=== PATIENT | female | born 1960 | race Caucasian/White ===

== ENCOUNTER 2021-10-28 10:27 | Outpatient (CLI) | payer OTHER, SELFPAY ==
--- NOTE | ~2021-10-28 | MM_ITS ---
EXAMINATION: MM screening charis BI w juaquin HISTORY: Screening mammogram TECHNIQUE: Craniocaudal and mediolateral oblique 3-D tomosynthesis images were obtained and synthetic 2-D images were generated. CAD analysis was submitted and interpreted. COMPARISON: 05/2019, 09/08/2017 bilateral screening mammogram examinations BREAST PARENCHYMAL COMPOSITION: There are scattered areas of fibroglandular density. FINDINGS: There is no evidence of suspicious mass, calcification, or architectural distortion to sugg est malignancy in either breast. There has been no suspicious interval change. IMPRESSION: 1. No mammographic evidence of malignancy. 2. Recommend routine screening mammography in one year. BI-RADS Category 1: Negative Reviewed, dictated and finalized at location A.
== END 2021-10-28 10:28 | disposition home or self-care (01) ==
LOC: ANHIMG 10:29
PROVIDERS: PCP Emergency Medicine; Visit Provider Obstetrics & Gynecology Gynecology
DX: Z12.31 Encounter for screening mammogram for malignant neoplasm of breast (principal)
CPT/HCPCS: 77063; 77067

== ENCOUNTER 2022-10-08 08:15 | Emergency (ER) | payer OTHER, SELFPAY ==
[2022-10-08] VITALS (7 sets, daily range): BP systolic 102–133; BP diastolic 65–86; PULSE 75–99; RESP 15–16; O2SAT 99–100
--- NOTE | ~2022-10-08 | XR_ITS ---
Clinical Indication: Atrial fibrillation, palpitations PA and lateral views of the chest: Comparison: None Findings: The lungs are clear, without evidence of focal consolidation or pleural effusion. Cardiome diastinal silhouette is within normal limits. Bones and soft tissues are unremarkable. Impression: Normal chest. Reviewed, dictated and finalized at [facility]. SPLANT NURSE Impression: Normal chest.
--- NOTE | ~2022-10-08 | XR_ITS ---
EXAMINATION: XR hip LT 2V w AP pelvis DATE: 10/08/2022 08:52 INDICATION: Left hip pain. TECHNIQUE: An anteroposterior view of the pelvis and 2 views of left hip were obtained. COMPARISON: None. FINDINGS: Bone alignment is normal. No fracture. There is severe lumbar spondylosis. There is mild os teoarthritis of the hips characterized by tiny osteophytes without joint space narrowing. IMPRESSION: 1. Mild osteoarthritis of the hips. Reviewed, dictated and finalized at location A. 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
--- NOTE | 2022-10-08 08:30 | ED.GENADULT ---
HPI - General Adult General Chief complaint: Arrhythmia/Palpitations Stated complaint: A-FIB, palpitations resolved Time Seen by Provider: 10/08/22 08:18 History of Present Illness HPI narrative: 62-year-old female with history of paroxysmal atrial fibrillation presented to the emergency department for evaluation of A-fib. Patient states that she had episode of A-fib after surgery approximately 8 to 9 years ago. Patient states that she stopped taking her metoprolol a few years ago but states over the last 3 to 4 years she has been having intermittent episodes of atrial fibrillation. Patient no longer takes medication for this. Patient discussed this with her primary care physician and she was advised to present to the emergency department if she had any additional episodes of A-fib. Patient reports that last night when she was going to bed she says that she was A-fib but did not check to see if she was. Patient woke up this morning and did put on her watch and noted she was in A-fib. Patient denied any chest pain with this. As patient drove to the emergency department she felt the atrial fibrillation resolved. Patient states she did have some chest pain back pain at that time but that has also since resolved. Patient thought that the chest pain/back pain was most likely muscular. Denies any prior history of [place]. Patient reports that she is physically active and does not have chest pain with activity. Patient states she has never had a stress test. Patient also reported that she has been having left hip pain for the last 4 weeks and was going to follow-up with her primary care physician for this. Related Data Home Medications Medication Instructions Recorded Confirmed multivitamin 1 tablet PO DAILY 06/16/22 06/16/22 Allergies Allergy/AdvReac Type Severity Reaction Status Date / Time cefadroxil Allergy Unknown Unknown Verified 10/08/22 08:31 Review of Systems Review of Systems: CONSTITUTIONAL: Denies fever, chills, or sweats. EYES: Denies visual changes, redness, or discharge. ENT: Denies rhinorrhea, congestion, sore throat, or otalgia. CARDIOVASCULAR: See HPI RESPIRATORY: Denies cough or dyspnea. GASTROINTESTINAL: Denies abdominal pain, nausea, vomiting, or diarrhea. GENITOURINARY: Denies dysuria or hematuria. SKIN: Denies rash or itching. MUSCULOSKELETAL: See HPI NEUROLOGIC: Denies headache, numbness, or weakness. [facility] Past Medical History Medical History (Updated 10/08/22 @ 14:23 by Tomas Valderrama MD) Afib Osteoarthritis Family History Family History Father Hypertension Family history of diabetes mellitus in first degree relative Diabetes mellitus, Onset Age: 79 Family history of glaucoma, Onset Age: 79 Family history of cardiovascular disease, Onset Age: 79 Family history of kidney disease, Onset Age: 79 Sibling Asthma Family history of diabetes mellitus in first degree relative Family history of glaucoma Family history of malignant neoplasm of kidney Mother Family history of osteoarthritis Other Family history of arthritis Social History Social History Smoking status: Never smoker Second hand tobacco smoke exposure: No Alcohol intake: never Substance use: never Substance use type: does not use Living arrangements: with family Gender identity (if verbalized by the patient): Female Spiritual care concerns: No Agree to blood products: Yes Exam Narrative: APPEARANCE: Well appearing, no pain, no distress, well-nourished. HEAD: normocephalic, atraumatic. EYES: PERRLA/EOMI, conjunctivae clear. NOSE: Normal no drainage NECK: Supple. No adenopathy, no masses. RESPIRATORY: Airway patent, respirations nonlabored. Clear to auscultation bilaterally, no rales, rhonchi, wheezing. CARDIOVASCULAR: Regular rate and rhythm without murmurs rubs or gallops.
--- NOTE | 2022-10-08 08:37 | ECG_ITS ---
Measurements Intervals [place] Rate: 97 P: 72 NM: 143 QRS: 5 QRSD: 75 T: 53 QT: 328 QTc: 417 Interpretive Statements SINUS RHYTHM BORDERLINE ST-T WAVE ABNORMALITY- DIFFUSE LEADS BASELINE ARTIFACT- I, II, AVR, AVL, AVF, V1-V2 BORDERLINE ECG NO PREVIOUS ECG AVAILABLE FOR COMPARISON Electronically Signed On 10-08-2022 9:00:19 WIND DEVELOPMENT DIRECTOR by Ramiro Crawford D.O.
[2022-10-08 08:43] LABS: Basophils Percent Auto 0.9 % (0.2-1.2); Eosinophils Absolute Auto 0.1 K/mm3 (0-0.3); Eosinophils Percent Auto 1.9 % (0-4.4); Hematocrit 39.8 % (37.0-47.0); Hemoglobin 13.1 g/dL (12.0-15.0); Immature Granulocyte Absolute 0.01 K/mm3 (0.00-0.031); Immature Granulocyte Percent A 0.2 % (0-0.5); Lymphocytes Absolute Auto 1.25 K/mm3 (0.9-3.2); Lymphocytes Percent Auto 29.3 % (18.3-44.2); Mean Corpuscular HGB Conc 32.9 g/dl (32-36); Mean Corpuscular Hemoglobin 32.3 pg (26-34); Mean Platelet Volume 11.5 fl (7.4-10.4); Monocytes Absolute Auto 0.4 K/mm3 (0.1-0.6); Monocytes Percent Auto 8.7 % (2.6-8.5); Neutrophils Absolute Auto 2.5 K/mm3 (1.3-6.7); Platelet Count Result 227 k/mm3 (150-375); Red Blood Count 4.06 M/mm3 (4.2-5.4); Red Cell Distribution Width 12.3 % (11.5-14.5); White Blood Count 4.3 K/mm3 (4.5-10.0)
[2022-10-08 08:50] LABS: INR 1.1; Prothrombin Time 13.7 Seconds (11.1-14.7)
[2022-10-08 08:51] LABS: Partial Thromboplastin Time 26.8 SECONDS (22.3-36.8)
[2022-10-08 09:09] LABS: Alanine Aminotransferase 19 U/L (6-35); Albumin Level 4.8 g/dL (3.5-5.1); Alkaline Phosphatase 46 U/L (38-126); Anion Gap 5 mmol/L (8-16); Aspartate Amino Transferase 24 U/L (14-36); Bilirubin,Total 0.6 mg/dL (0.2-1.3); Blood Urea Nitrogen 17 mg/dL (7-17); Calcium 9.2 mg/dL (8.4-10.2); Carbon Dioxide 28 mmol/L (22-30); Chloride 102 mmol/L (98-107); Estimated Glomerular Filt Rate > 60; Glucose 82 mg/dL (65-110); Potassium 4.1 mmol/L (3.4-5.0); Sodium 135 mmol/L (137-145)
[2022-10-08 09:21] LABS: Troponin I < 0.012 ng/mL (0.000-0.034)
[2022-10-08 09:33] LABS: Appearance Urine Clear (Clear); Bilirubin Urine Negative (Negative); Blood Urine Negative (Negative); Color Urine Yellow (Yellow); Glucose Urine UA Negative (Negative); Ketones Urine Negative (Negative); Leukocyte Esterase Ur Negative LEU/UL (Negative); Nitrate Urine Negative (Negative); Protein Urine Negative (Negative); Specific Grav Ur 1.004 (1.001-1.035); Urobilinogen Urine 0.2 mg/dL (<2.0)
[2022-10-08 10:04] LABS: Add Urine Microscopic? NO
[2022-10-08 11:57] LABS: Troponin I < 0.012 ng/mL (0.000-0.034)
[2022-10-08] MEDS: METOPROLOL SUCCINATE EXT REL 25 MG TABCR PO (13:36)
== END 2022-10-08 14:38 | disposition home or self-care (01) ==
PROVIDERS: Emergency Provider Emergency Medicine; PCP Emergency Medicine
DX: I48.0 Paroxysmal atrial fibrillation (principal)
CPT/HCPCS: 36415; 71046; 73502; 80053; 81003; 83735; 84443; 84484; 85025; 85610; 85730; 93005; 99284; A9270

== ENCOUNTER 2022-12-18 07:35 | Outpatient (CLI) | payer OTHER, SELFPAY ==
--- NOTE | 2022-12-18 07:54 | ECHO_ITS ---
Patient Info Name: Lilo Obregon Age: 62 years : 1960 Gender: Female Ht: 68 in Wt: 178 lbs BSA: 1.98 m2 HR: 78 bpm BP: 123 / 77 mmHg Heart Rhythm: Sinus Rhythm Technical Quality: Good Exam Date: 12/18/2022 8:09 AM Exam Location: [facility] Pulmonary Patient Status: Outpatient Admit Date: 12/18/2022 Staff Ordering Physician: Ramiro Crawford DO Attending Provider: Ramiro Crawford DO Referring Physician: Ty DRISCOLL; Exam Type: CA echo doppler color flow Study Info Indications R07.9 - Chest pain, unspecified Complete two-dimensional, color flow and Doppler transthoracic echocardiogram is performed. Summary 1. Complete two-dimensional, color flow and Doppler transthoracic echocardiogram is performed. 2. Left ventricular chamber dimension is normal. 3. Left ventricular systolic function is normal, estimated at 60-65%. 4. The left ventricular diastolic function is grade I diastolic dysfunction. 5. E/e' 6 is not elevated. 6. There is mild aortic valve regurgitation. 7. There is mild mitral valve regurgitation. 8. There is mild tricuspid valve regurgitation. 9. No pulmonary hypertension, estimated pulmonary arterial systolic pressure is 31 mmHg. Left Ventricle E/e' 6 is not elevated. Left ventricular chamber dimension is normal. Left ventricular systolic function is normal, estimated at 60-65%. The left ventricular diastolic function is grade I diastolic dysfunction. Right Ventricle Right ventricular systolic function is normal and with normal TAPSE 2.3 cm. Right ventricular chamber dimension is normal. Left Atria Left atrial chamber dimension is normal. Right Atria Right atrial chamber dimension is normal. Aortic Valve The aortic valve is trileaflet. There is no aortic valve stenosis. There is mild aortic valve regurgitation. Pulmonic Valve There is no pulmonic regurgitation. Mitral Valve There is no mitral valve stenosis. There is mild mitral valve regurgitation. Tricuspid Valve There is mild tricuspid valve regurgitation. No pulmonary hypertension, estimated pulmonary arterial systolic pressure is 31 mmHg. Pericardium/Pleural There is no pericardial effusion. Inferior Vena Cava Normal inferior vena cava with >50% collapse upon inspiration consistent with normal right atrial pressure, 5 mmHg. Aorta The aortic root size at the sinus of Valsalva is normal. Left Ventricular Outflow Tract Name Value Normal LVOT 2D LVOT Diameter 1.9 cm LVOT Doppler LVOT Peak Gradient 5 mmHg LVOT Mean Gradient 2 mmHg LVOT VTI 27 cm LVOT VTI/AV VTI Ratio 0.7 LVOT Stroke Volume 79 ml LVOT CO 4.3 l/min LVOT CI 2.1 l/min/m2 Pulmonic Valve Name Value Normal RVOT Doppler RVOT Peak Gradient 1 mmHg PV Dopp
--- NOTE | 2022-12-18 07:54 | EST_ITS ---
Patient Info Name: Lilo Obregon Age: 62 years : 1960 Gender: Female Ht: 68 in Wt: 178 lbs BSA: 1.98 m2 Exam Date: 12/18/2022 9:07 AM Exam Location: [facility] Stress Patient Status: Outpatient Admit Date: 12/18/2022 Staff Ordering Physician: Ramiro Crawford DO Attending Provider: Ramiro Crawford DO Exercise Technologist: Fernanda Pham RDCS Exercise Physician: Ramiro Crawford DO Exam Type: CA stress test treadmill Study Info A treadmill exercise stress test was performed. Summary 1. 1. Negative Franky exercise stress test for ischemic ST changes by ECG criteria. 2. 2. Reduced functional capacity, achieving 7 METs of workload. 3. 3. Appropriate HR response to exercise. 4. 4. Appropriate HR recovery at 1 minute post exercise. 5. 5. No imaging with stress testing. 6. 6. Patient informed of the above results. Protocol: Franky Stress ECG Details Stage: REST Duration (min): 1 min : 1 sec Speed (mph): 0.0 Grade (%): 0 HR (bpm): 73 SBP (mmHg): 118 DBP (mmHg): 69 METS: --- Stage: REST Duration (min): 4 min : 34 sec Speed (mph): 0.0 Grade (%): 0 HR (bpm): 84 SBP (mmHg): 118 DBP (mmHg): 69 METS: --- Stage: STAGE 1 Duration (min): 1 min : 0 sec Speed (mph): 1.7 Grade (%): 10 HR (bpm): 103 SBP (mmHg): 118 DBP (mmHg): 69 METS: --- Stage: STAGE 1 Duration (min): 2 min : 0 sec Speed (mph): 1.7 Grade (%): 10 HR (bpm): 122 SBP (mmHg): 118 DBP (mmHg): 69 METS: --- Stage: STAGE 1 Duration (min): 3 min : 0 sec Speed (mph): 1.7 Grade (%): 10 HR (bpm): 128 SBP (mmHg): 154 DBP (mmHg): 76 METS: --- Stage: STAGE 2 Duration (min): 1 min : 0 sec Speed (mph): 2.5 Grade (%): 12 HR (bpm): 134 SBP (mmHg): 154 DBP (mmHg): 76 METS: --- Stage: STAGE 2 Duration (min): 2 min : 0 sec Speed (mph): 2.5 Grade (%): 12 HR (bpm): 141 SBP (mmHg): 160 DBP (mmHg): 73 METS: --- Stage: STAGE 2 Duration (min): 2 min : 4 sec Speed (mph): 2.5 Grade (%): 12 HR (bpm): 142 SBP (mmHg): 160 DBP (mmHg): 73 METS: --- Stage: RECOVERY Duration (min): 0 min : 55 sec Speed (mph): 0.0 Grade (%): 0 HR (bpm): 126 SBP (mmHg): 160 DBP (mmHg): 73 METS: --- Stage: RECOVERY Duration (min): 1 min : 55 sec Speed (mph): 0.0 Grade (%): 0 HR (bpm): 102 SBP (mmHg): 168 DBP (mmHg): 74 METS: --- Stage: RECOVERY Duration (min): 2 min : 55 sec Speed (mph): 0.0 Grade (%): 0 HR (bpm): 95 SBP (mmHg): 171 DBP (mmHg): 71 METS: --- Stage: RECOVERY Duration (min): 3 min : 55 sec Speed (mph): 0.0 Grade (%): 0 HR (bpm): 91 SBP (mmHg): 171 DBP (mmHg): 71 METS: --- Stage: RECOVERY Duration (min): 4 min : 54 sec Speed (mph): 0.0 Grade (%): 0 HR (bpm): 88 SBP (mmHg): 143 DBP (mmHg): 68 METS: --- Rest HR: 84 bpm Peak HR: 143 bpm Rest Sys BP: 118 mmHg Peak Sys BP: 171 mmHg Max Pred HR:
== END 2022-12-18 07:36 | disposition home or self-care (01) ==
LOC: ANHCARD 07:36
PROVIDERS: PCP Emergency Medicine; Visit Provider Internal Medicine Cardiovascular Disease
DX: I48.0 Paroxysmal atrial fibrillation (principal); R07.9 Chest pain, unspecified; I34.0 Nonrheumatic mitral (valve) insufficiency; I35.1 Nonrheumatic aortic (valve) insufficiency; I36.1 Nonrheumatic tricuspid (valve) insufficiency
CPT/HCPCS: 93017; 93306

== ENCOUNTER 2023-01-13 01:44 | Day surgery (SDC) | payer OTHER, SELFPAY ==
[2023-01-06 13:48] VITALS: BMI 27.4
--- NOTE | 2023-01-13 08:36 | WPDANESEPPF ---
Anes - Initial Pre Proc Eval Procedure: Operation Date: 01/13/23 10:30 Proposed Procedures p Screening Colonoscopy - Errol Weaver MD Date/Time: 01/13/23 08:36 Surgeon: Errol Weaver MD Pre Op Diagnosis: neoplasm screening Patient Data Age: 62 Gender: F Height: 1.73 m Weight: 81.8 kg Allergies Allergy/AdvReac Type Severity Reaction Status Date / Time cefadroxil Allergy Unknown Rash Verified 01/13/23 09:00 Home Medications Medication Instructions Recorded Confirmed Type multivitamin 1 tablet PO DAILY 06/16/22 01/06/23 History metoprolol succinate 25 mg 25 mg PO DAILY 30 days #90 tabs 11/05/22 01/06/23 Rx tablet,extended release 24 hr peg 3350-electrolytes 236 240 ml PO Q10M #4,000 mL 12/10/22 01/06/23 Rx gram-22.74 gram-6.74 gram-5.86 gram solution (Golytely) flecainide 100 mg tablet 100 mg PO Q12H PRN afib 01/06/23 01/06/23 History fluticasone propionate 50 1 spray intranasal DAILY 01/06/23 01/06/23 History mcg/actuation nasal spray,suspension Other studies: Admit Date: ? ? 12/18/2022 Staff Ordering Physician: ? ? Ramiro Crawford. DO Attending Provider: ? ? Ramiro Crwaford. DO Referring Physician: ? ? Ty DRISCOLL; Exam Type: ? ? CA echo doppler color flow Study Info Indications ? ? R07.9 - Chest pain,? unspecified Complete two-dimensional, color flow and Doppler transthoracic echocardiogram is performed. Account #: ? ? [id number] Summary ? 1. Complete two-dimensional, color flow and Doppler transthoracic echocardiogram is performed. ? 2. Left ventricular chamber dimension is normal. ? 3. Left ventricular systolic function is normal, estimated at 60-65%. ? 4. The left ventricular diastolic function is grade I diastolic dysfunction. ? 5. E/e' 6 is not elevated. ? 6. There is mild aortic valve regurgitation. ? 7. There is mild mitral valve regurgitation. ? 8. There is mild tricuspid valve regurgitation. ? 9. No pulmonary hypertension, estimated pulmonary arterial systolic pressure is 31 mmHg. Patient hx anesthesia problems: none Family hx anesthesia problems: none Results Review: All pre-operative results and documents have been reviewed as part of the pre-operative evaluation. [facility] Past Medical History Medical History (Updated 01/13/23 @ 09:09 by Errol Weaver MD) Afib Colon polyp Osteoarthritis Family History Family History Father Hypertension Family history of diabetes mellitus in first degree relative Diabetes mellitus, Onset Age: 79 Family history of glaucoma, Onset Age: 79 Family history of cardiovascular disease, Onset Age: 79 Family history of kidney disease, Onset Age: 79 Sibling Asthma Family history of diabetes mellitus in first degree relative Family history of glaucoma Family history of malignant neoplasm of kidney Mother Family history of osteoarthritis Other Family history of arthritis Social History Social History Smoking status: Never smoker Second hand tobacco smoke exposure: No Alcohol intake: never Substance use: never Substance use type: does not use Living arrangements: with family Gender identity (if verbalized by the patient): Female Spiritual care concerns: No Agree to blood products: Yes Anes - Eval Final PreProcedure Day of Procedure 01/13/23 08:36 Patient weight: overweight Heart: regular rate and rhythm Lungs: clear to auscultation and normal air movement Airway: Mallampati scale class II Neurological: alert and oriented Last oral intake: >/= 8 hours ASA classification: II Emergent: no Anesthetic plan: proceed Anesthesia type and monitoring: general GIVS Results Review: All pre-operative results and documents have been reviewed as part of the pre-operative evaluation. Informed Consent: The patient's anesthe
[2023-01-13 09:02] VITALS: BP 119/69; PULSE 71; RESP 20; TEMP 36.6; O2SAT 100
--- NOTE | 2023-01-13 09:06 | PM.HPGS ---
History of Present Illness History of Present Illness Consent: Risks, benefits, and alternatives have been discussed and questions answered. Patient agrees to proceed with procedure. Chief complaint: neoplasm screening Narrative: Lilo Obregon is a 62 year old female with colon polyp 5 years ago Review of Systems Constitutional: Constitutional: Denies headache(s) and Denies weakness Eyes: Eyes: Denies blurry vision ENT: Reports Normal hearing present, Denies headache(s) and Denies neck pain Cardiovascular: Cardiovascular: Denies chest pain and Denies dyspnea Respiratory: Respiratory: Denies dyspnea Gastrointestinal: Gastrointestinal: Reports no additional gastrointestinal complaints Genitourinary: Genitourinary: Denies dysuria Musculoskeletal: Musculoskeletal: Denies neck pain Integumentary/Breasts: Skin/Breast: Denies dry skin Neurologic: Reports Normal hearing present, Denies headache(s) and Denies weakness Psychiatric: Psychiatric: Denies anxiety Endocrine: Endocrine: Denies change in body appearance Hematologic/Lymphatic: Hematologic/Lymphatic: Denies easy bleeding Allergic/Immunologic: Allergic/Immunologic: Denies urticaria PMF Past Medical History Medical History (Updated 01/13/23 @ 09:09 by Errol Weaver MD) Afib Colon polyp Osteoarthritis Family History Family History (Reviewed 11/12/22 @ 14:06 by Imelda Quintero [facility]) Father Hypertension Family history of diabetes mellitus in first degree relative Diabetes mellitus, Onset Age: 79 Family history of glaucoma, Onset Age: 79 Family history of cardiovascular disease, Onset Age: 79 Family history of kidney disease, Onset Age: 79 Sibling Asthma Family history of diabetes mellitus in first degree relative Family history of glaucoma Family history of malignant neoplasm of kidney Mother Family history of osteoarthritis Other Family history of arthritis Social History Social History Smoking status: Never smoker Second hand tobacco smoke exposure: No Alcohol intake: never Substance use: never Substance use type: does not use Living arrangements: with family Gender identity (if verbalized by the patient): Female Spiritual care concerns: No Agree to blood products: Yes Meds Home Medications and Allergies Home Medications Medication Instructions Recorded Confirmed Type multivitamin 1 tablet PO DAILY 06/16/22 01/06/23 History metoprolol succinate 25 mg 25 mg PO DAILY 30 days #90 tabs 11/05/22 01/06/23 Rx tablet,extended release 24 hr peg 3350-electrolytes 236 240 ml PO Q10M #4,000 mL 12/10/22 01/06/23 Rx gram-22.74 gram-6.74 gram-5.86 gram solution (Golytely) flecainide 100 mg tablet 100 mg PO Q12H PRN afib 01/06/23 01/06/23 History fluticasone propionate 50 1 spray intranasal DAILY 01/06/23 01/06/23 History mcg/actuation nasal spray,suspension Allergies Allergy/AdvReac Type Severity Reaction Status Date / Time cefadroxil Allergy Unknown Rash Verified 01/13/23 09:00 Vital Signs Vital Signs - 24 hr 01/13/23 09:02 Temperature 97.8 F Pulse Rate 71 Respiratory Rate 20 Blood Pressure 119/69 Pulse Oximetry 100 Oxygen Delivery Room Air Exam Const: General: comfortable and no acute distress HENMT: Face/Nose/Sinus: Normal nares present Eyes: General: appearance normal, both eyes and all related structures Neck: Neck: no JVD Resp: Auscultation: clear to auscultation bilaterally Cardio: Rate: regular rate Rhythm: regular rhythm GI: Inspection: non-distended GI Palp: Yes Soft to palpation Skin: General skin exam: normal color Neuro: General: gait normal Speech: normal speech Extrem: General: normal to inspection Psych: Mental Status: mental status grossly normal Assessment and Plan Assessment and plan (1) Colon polyp: Code(s): K63.5 - Polyp of c
[2023-01-13] MEDS: LACTATED RINGERS 1,000 ML 150 ML IV CONT (09:08)
[2023-01-13 09:37] VITALS: BP 95/61; PULSE 70; RESP 18; O2SAT 100
[2023-01-13 09:47] VITALS: BP 100/67; PULSE 72; RESP 18; O2SAT 100
[2023-01-13 09:57] VITALS: BP 101/69; PULSE 70; RESP 16; O2SAT 100
== END 2023-01-13 10:03 | disposition home or self-care (01) ==
PROVIDERS: PCP Emergency Medicine; Visit Provider Internal Medicine Gastroenterology
PROC: 0DJD8ZZ Inspection of Lower Intestinal Tract, Via Natural or Artificial Opening Endoscopic (ICD-10-PCS; CPT 45378; principal; 2023-01-13 10:30)
DX: Z12.11 Encounter for screening for malignant neoplasm of colon (principal); Z86.010 Personal history of colon polyps
CPT/HCPCS: 45378; J2704; J7120

== ENCOUNTER 2023-02-28 07:40 | Outpatient (CLI) | payer OTHER, SELFPAY ==
--- NOTE | ~2023-02-28 | MM_ITS ---
EXAMINATION: MM screening charis BI w juaquin HISTORY: Screening mammogram TECHNIQUE: Craniocaudal and mediolateral oblique 3-D tomosynthesis images were obtained and synthetic 2-D images were generated. CAD analysis was submitted and interpreted. COMPARISON: 10/28/2021, 05/2019, 09/08/2017 bilateral screening mammogram examinations BREAST PARENCHYMAL COMPOSITION: There are scattered areas of fibroglandular density. FINDINGS: There is no evidence of suspicious mass, calcification, or architectural distortion to sugg est malignancy in either breast. There has been no suspicious interval change. IMPRESSION: 1. No mammographic evidence of malignancy. 2. Recommend routine screening mammography in one year. BI-RADS Category 1: Negative Reviewed, dictated and finalized at location A.
== END 2023-02-28 07:41 | disposition home or self-care (01) ==
PROVIDERS: PCP Emergency Medicine; Visit Provider Nurse Practitioner
DX: Z12.31 Encounter for screening mammogram for malignant neoplasm of breast (principal)
CPT/HCPCS: 77063; 77067

== ENCOUNTER 2024-10-07 12:48 | Outpatient (CLI) | payer OTHER, SELFPAY | END 2024-10-07 12:49 | disposition home or self-care (01) | LOC: ANHIMG 12:52 | PROVIDERS: PCP Emergency Medicine; Visit Provider Physician Assistant Surgical | DX: N63.21 Unspecified lump in the left breast, upper outer quadrant (principal); R92.8 Other abnormal and inconclusive findings on diagnostic imaging of breast | CPT/HCPCS: 76642; 77061; 77065; G0279 ==